=== PATIENT | female | born 1980 | race Caucasian/White ===

== ENCOUNTER 2017-08-24 09:18 | Emergency (ER) | payer MEDICAID ==
[~2017-08-24] VITALS: Ht 162.6 cm; Wt 96.1 kg
[~2017-08-24 09:18] MED LIST: IBUP-1222 PO; OXYC-302 PO
[2017-08-24] MEDS ORDERED: MAALOX/HYOSCYAMINE/LIDOCAINE 45 ML BTL ONE (10:22)
[2017-08-24] MEDS ORDERED: ONDANSETRON 2MG/ML, 2ML ONE (10:22)
[2017-08-24] MEDS ORDERED: FAMOTIDINE 20 MG/2 ML ONE (10:22)
[2017-08-24 10:26] LABS: HEMATOCRIT 38.3 % (34.6-47.8); HEMOGLOBIN 13.4 g/dL (11.7-16.4)
[2017-08-24] MEDS ORDERED: MAALOX/HYOSCYAMINE/LIDOCAINE 45 ML BTL PO ONE (10:30)
[2017-08-24] MEDS ORDERED: SODIUM CHLORIDE FLUSH 10ML SYR IVF ONE (10:30)
[2017-08-24] MEDS ORDERED: SODIUM CHLORIDE 0.9% 1,000ML IVBOLUS ONE (10:30)
[2017-08-24] MEDS ORDERED: ONDANSETRON 2MG/ML, 2ML IVPush ONE (10:30)
[2017-08-24] MEDS ORDERED: FAMOTIDINE 20 MG/2 ML IVP ONE (10:30)
[2017-08-24 10:39] LABS: ASPARTATE AMINO TRANSFERASE 59 U/L (15-37); BLOOD UREA NITROGEN 5 mg/dL (7-18)
[2017-08-24 10:55] LABS: DIFF TOTAL CELLS COUNTED 100 CELL DIFF
[2017-08-24 10:57] LABS: VERIFY COUNTS? YES
[2017-08-24 13:42] VITALS: BP 121/78
== END 2017-08-24 13:46 | disposition home or self-care (01) ==
LOC: ED 11:29
DX: K21.9 Gastro-esophageal reflux disease without esophagitis (principal)
CPT/HCPCS: 36415; 76700; 80053; 81001; 83690; 84703; 85025; 87086; 96361; 96374; 96375; 99285; J2405; J7030; S0028